=== PATIENT | male | born 1970 | race Caucasian/White ===

== ENCOUNTER 2017-02-21 18:14 | Inpatient (IN) | payer BC, OTHER ==
[~2017-02-21] VITALS: Ht 180.3 cm; Wt 100.0 kg
[2017-02-21 18:48] LABS: BASOPHILS % 0.5 % (0.0-2.0); EOSINOPHILS % 0.7 % (0.0-7.0); HEMATOCRIT 39.8 % (42.0-52.0); HEMOGLOBIN 14.3 g/dl (14.0-18.0); LYMPHOCYTES # 1.9 10^3/ul (0.8-2.9); LYMPHOCYTES % 31.9 % (15.0-51.0); MEAN CORPUSCULAR HGB CONC 35.9 g/dl (32.0-37.0); MEAN CORPUSCULAR VOLUME 86.3 fl (82.0-101.0); MEAN PLATELET VOLUME 8.7 fl (7.4-10.4); MONOCYTE # 0.5 10^3/ul (0.3-0.9); MONOCYTES % 7.9 % (0.0-11.0); NEUTROPHILS % 58.7 % (39.0-77.0); PLATELET COUNT 268 10^3/UL (140-415); RED BLOOD COUNT 4.61 10^6/ul (4.70-6.10); RED CELL DISTRIBUTION WIDTH 12.1 % (11.5-14.5)
[2017-02-21 19:03] LABS: INR 0.97; PROTIME 12.9 Sec (12.2-14.2)
[2017-02-21 19:04] LABS: ALANINE AMINOTRANSFERASE 66 IU/L (13-69); ALBUMIN 4.2 g/dl (3.3-4.9); ALBUMIN/GLOBULIN RATIO 1.55; ALKALINE PHOSPHATASE 75 IU/L (42-121); ANION GAP 19 (8-16); ASPARTATE AMINO TRANSFERASE 29 IU/L (15-46); BILIRUBIN,INDIRECT 0.4 mg/dl (0-1.1); BILIRUBIN,TOTAL 0.4 mg/dl (0.2-1.3); BLOOD UREA NITROGEN 15 mg/dl (7-20); CARBON DIOXIDE 24 mmol/L (21-31); CHLORIDE 103 mmol/L (97-110); CREATININE 0.94 mg/dl (0.61-1.24); GLUCOSE 100 mg/dl (70-220); PARTIAL THROMBOPLASTIN TIME 25.9 Sec (25.0-35.0); POTASSIUM 4.1 mmol/L (3.5-5.1); SODIUM 142 mmol/L (135-144); TOTAL PROTEIN 6.9 g/dl (6.1-8.1)
[2017-02-21 19:06] LABS: D-DIMER 294.8 ng/ml (<460)
[2017-02-21 19:16] LABS: B-TYPE NATRIURETIC PEPTIDE 37 PG/ML (0-125)
--- NOTE | 2017-02-21 19:26 | RADRPT ---
PROCEDURE: X-ray Chest. CLINICAL INDICATION: Chest pain. TECHNIQUE: Single view chest x-ray. COMPARISON: None available. FINDINGS: The examination is under inflated. The cardiomediastinal silhouette is within normal limi ts. The lungs are clear without focal consolidation, effusion, or pneumothorax. There are no acute osseous abnormalities. IMPRESSION: 1. No acute cardiopulmonary abnormality. RPTAT: HLBP .Arden Richardson MD, MD Date Time Electronically viewed and signed by .Arden Richardson MD, on 02/21/2017 19:26 .P/
[2017-02-21 19:32] LABS: TROPONIN-I < 0.012 ng/ml (0.00-0.12)
--- NOTE | 2017-02-21 19:59 | ERA ---
ER Documentation Chief Complaint Date/Time DATE: 02/21/17 TIME: 19:58 Chief Complaint chest x1 week, radiating to right arm, getting worse HPI This is a 46-year-old male with a history of hypertension, and gastroesophageal reflux disease who presents to the emergency room for evaluation of chest pain. The patient states that he has had chest pain on and off for the last week and he localizes the chest pain to the center of his chest with mild radiation to the left and right arm. He states that exertion does make his chest pain worse and resting flat makes his chest pain better. The patient states that he has mild shortness of breath associated with this chest pain. He states that he was seen at [facility] last night and was in the emergency room for the same complaint and was discharged after "some blood test" ROS All systems reviewed and are negative except as per history of present illness. PMhx/Soc History of Surgery: No Anesthesia Reaction: No Hx Neurological Disorder: No Hx Respiratory Disorders: No Hx Cardiac Disorders: No Hx Psychiatric Problems: No Hx Miscellaneous Medical Probl: No Hx Alcohol Use: Yes (occasionally) Hx Substance Use: No Hx Tobacco Use: Yes Smoking Status: Former smoker Physical Exam Vitals Vital Signs Date Time Temp Pulse Resp B/P Pulse Ox O2 Delivery O2 Flow Rate FiO2 02/21/17 18:30 98.1 75 18 141/99 98 Physical Exam INITIAL VITAL SIGNS: Reviewed by me GENERAL: The patient is well developed and appropriate for usual state of health in no apparent distress HEENT: Pupils equal, round, and reactive to light. EOMI. There is no scleral icterus. NECK: C-spine is soft and supple, there is no meningismus. There is no cervical lymphadenopathy. LUNGS: Clear to auscultation bilaterally. There are no rales, wheezes or rhonchi. HEART: Regular rate and rhythm, no murmurs, clicks, rubs or gallops. ABDOMEN: Soft, non-tender, non-distended. There are bowel sounds in all four quadrants. No rebound or guarding. EXTREMITIES: There is no peripheral cyanosis or edema. No focal swelling or erythema. NEUROLOGICAL: The patient moves all four extremities with 5/5 strength. Cranial nerves II - XII are intact. Normal gait. Alert and oriented SKIN: There is no apparent rash or petechiae. HEME/LYMPHATIC: There is no evidence of excessive bruising or lymphedema. PSYCHIATRIC: The patient does not appear anxious or depressed. Result Diagram: 02/21/17181402/21/171814 Results 24 hrs Laboratory Tests Test 02/21/17 18:15 White Blood Count 6.010^3/ul Red Blood Count 4.6110^6/ul Hemoglobin 14.3g/dl Hematocrit 39.8% Mean Corpuscular Volume 86.3fl Mean Corpuscular Hemoglobin 31.0pg Mean Corpuscular Hemoglobin Concent 35.9g/dl Red Cell Distribution Width 12.1% Platelet Count 63083^3/UL Mean Platelet Volume 8.7fl Neutrophils % 58.7% Lymphocytes % 31.9% Monocytes % 7.9% Eosinophils % 0.7% Basophils % 0.5% Nucleated Red Blood Cells % 0.0/100WBC Neutrophils # (Manual) 3.510^3/ul Lymphocytes # 1.910^3/ul Monocytes # 0.510^3/ul Eosinophils # 0.010^3/ul Basophils # 0.010^3/ul Nucleated Red Blood Cells # 0.010^3/ul Prothrombin Time 12.9Sec Prothrombin Time Ratio 1.0 INR International Normalized Ratio 0.97 Activated Partial Thromboplast Time 25.9Sec D-Dimer 294.80ng/ml D-Dimer Comment Sodium Level 142mmol/L Potassium Level 4.1mmol/L Chloride Level 103mmol/L Carbon Dioxide Level 24mmol/L Anion Gap 19 Blood Urea Nitrogen 15mg/dl Creatinine 0.94mg/dl Glucose Level 100mg/dl Calcium Level 9.0mg/dl Total Bilirubin 0.4mg/dl Direct Bilirubin 0.00mg/dl Indirect Bilirubin 0.4mg/dl Aspartate Amino Transf (AST/SGOT) 29IU/L Alanine Aminotransferase (ALT/SGPT) 66IU/L Alkaline Phosphatase 75IU/L Troponin I < 0.012ng/ml B-Type Natriuretic Peptide 37PG/ML Total Protein 6.9g/dl Albumin 4.2g/dl Globulin 2.70g/dl Albumin/Globulin Ratio 1.55 Current Medications Medications (Trade) Dose Ordered Sig/Pa Route PRN Reason Start Time Stop Time Status Last Admin Dose Admin Ondansetron HCl (Zofran Inj) 4 mg ER BRIDGE PRN IV NAUSEA AND/OR VOMITING 02/21/17 20:00 02/22/17 19:59 Acetaminophen (Tylenol Tab) 650 mg ER BRIDGE PRN PO MILD PAIN/FEVER 02/21/17 20:00 02/22/17 19:59 Procedures/MDM EKG: Rate/Rhythm: [Normal Sinus Rhythm] QRS, ST, T-waves: [No changes consistent w/ acute ischemia] Impression: [No evidence of ischemia or arrhythmia] EKG: #2 Rate/Rhythm: [Sinus bradycardia QRS, ST, T-waves: [No changes consistent w/ acute ischemia] Impression: [No evidence of ischemia or arrhythmia] Chest X-ray 1V Interpreted by me: Soft Tissue: No acute abnormalities Bones: No acute abnormalities Mediastinum/Cardiac Silhouette/Lungs: [No acute abnormalities] This 46-year-old male presents to the emergency room for evaluation of chest pain. This patient was seen and worked up at [facility] last night for the same. He was discharged home, and today states that his chest pain has gradually gotten worse. The patient does have an exertional component to his chest pain and this patient had a cardiac workup in the emergency room. His first troponin is negative. Serial EKGs did not show any ST elevations. Chest x-ray is clear with no widened mediastinum. This patient has a d-dimer which is negative, my suspicion for pulmonary embolism is low at this time. This patient will be admitted at this time. I have spoken to our admitting physician , who agrees to evaluate this patient. I have ordered an echocardiogram and the patient will be seen by stage technician in the hospital at this time. Departure Diagnosis: Primary Impression: Chest pain Condition: Stable KIMBERLEE BARRIENTOS DO Feb 21, 2017 19:59
[2017-02-21] MEDS ORDERED: ONDANSETRON 4 MG INJ IV PRN ×2 (20:00)
[2017-02-21] MEDS ORDERED: morphine 2 MG INJ IV PRN (20:00)
[2017-02-21] MEDS ORDERED: DOCUSATE SODIUM 100 MG CAP PO PRN (20:00)
[2017-02-21] MEDS ORDERED: NACL 0.9% 3 ML SYG IV SCH (20:00)
[2017-02-21] MEDS ORDERED: HYDROCODONE/APAP (5/325) TAB PO PRN (20:00)
[2017-02-21] MEDS ORDERED: ENOXAPARIN 40 MG/0.4 ML SYG SC SCH (20:00)
[2017-02-21] MEDS ORDERED: ACETAMINOPHEN 325 MG TAB PO PRN ×2 (20:00)
[2017-02-21] MEDS ORDERED: DEXL60CA2 PO (20:07)
[2017-02-21] MEDS ORDERED: PROP20TA4 PO (20:07)
[2017-02-21] MEDS ORDERED: IOHEXOL 350MG/ML 50 ML BTL ONE (20:45)
[2017-02-21] MEDS ORDERED: SOD CHLORIDE 0.9% 100 ML ONE (20:45)
[2017-02-21] MEDS ORDERED: IOHEXOL 100 ML ONE (20:45)
[2017-02-21] MEDS ORDERED: hydrALAzine 20 MG INJ IV PRN (21:00)
--- NOTE | 2017-02-21 21:18 | RADRPT ---
PROCEDURE: CTA chest pulmonary angiography. CLINICAL INDICATION: Chest pain. TECHNIQUE: CT angiography of the chest was performed after the uneventful intravenous administratio n of 120 cc of Omnipaque-350. Coronal and sagittal reformations were performed. 3-D/multiplanar re formations were performed by the technologist and an independent workstation. The total exam CTDI = 28.17, 17.69 mGy and the DLP equals 689.84 mGy-cm. One or more of the following dose reduction techniques were used: - Automated exposure control. - Adjustment of the mA and/or kV according to patient size. - Use of iterative reconstruction technique. COMPARISON: Chest x-ray dated 02/21/2017. FINDINGS: Pulmonary angiogram: There are no emboli through the level of the subsegmental pulmonary arteries. The main pulmonary artery is normal in caliber and there is no evidence of right heart strain. Lungs, pleura, airways, and thoracic inlet: The lungs are clear without focal consolidation, effusi on, or pneumothorax. There are no concerning pulmonary nodules or masses. There is debris within the right lateral aspect of the distal trachea. Cardiovascular system, mediastinum, and lymphatics: The heart is normal in size without pericardial thickening or effusion. The aorta is nonaneurysmal. There is no axillary, hilar, or mediastinal sandi nopathy. There is faint increased density in the anterior mediastinum, possibly related to residual thymic tissue. Visualized upper abdomen: The visualized upper abdomen is unremarkable. Musculoskeletal system and soft tissues: There is mild multilevel degenerative enthesopathy. There are no concerning osseous lesions. The soft tissues are unremarkable. IMPRESSION: 1. No pulmonary emboli through the level of the subsegmental pulmonary arteries. 2. No acute cardiopulmonary abnormality or findings to suggest a source of the patient's symptoms. 3. Minor debris within the right lateral aspect of the distal trachea. RPTAT: HLBP .Arden Richardson MD, Date Time Electronically viewed and signed by .Arden Richardson MD, MD on 02/21/2017 21:18 .P/
[2017-02-21 21:46] VITALS: PULSE 58
[2017-02-21 22:00] VITALS: Ht 180.3 cm; Wt 100.0 kg
[2017-02-21] MEDS ORDERED: ENOXAPARIN 100 MG/ML SYG SC SCH (22:00)
[2017-02-21 22:12] VITALS: BP 135/89; RESP 18
[2017-02-21] MEDS: ASPIRIN (EC) 81 MG TAB PO SCH (22:16)
[2017-02-21] MEDS: FAMOTIDINE 20 MG TAB PO SCH (22:18)
[2017-02-22] VITALS (10 sets, daily range): BP systolic 115–150; BP diastolic 75–87; PULSE 31–64; RESP 16–18
[2017-02-22 01:31] LABS: TROPONIN-I 0.078 ng/ml (0.00-0.12)
[2017-02-22 01:32] LABS: CK-MB 0.55 ng/ml (0.0-2.4)
--- NOTE | 2017-02-22 03:06 | HP ---
DATE OF ADMISSION: 02/21/2017 DATE OF : 1970 PRIMARY CARE PHYSICIAN: Unknown. [employer]: Mateo Monroe MD CHIEF COMPLAINT: Chest pain. HISTORY OF PRESENT ILLNESS: This is a 46-year-old gentleman who presents with chest pain for 1 week. Apparently, he has been in her usual state of health. Moved/traveled up to [place] where the elevation is a little high. He had been moving some boxes, but denies any mandy injury. The pain is described as sharp, maybe heavy, substernal, back, potentially to right upper shoulder area, lasts about 20 minutes, but intermittently returns and is uncomfortable. No previous similar discomfort in the past. Denies any mandy chest wall injury. When he takes a deep breath, he is unable to feel as if he is getting enough air. No rash along the chest wall. No syncope. Possible nausea. No vomiting. No diaphoresis. No calf pain. Occasional edema. Pain occasionally helped by lying down. The pain returns with walking with mild exertion and potentially relieved with some rest. He took some Motrin, which potentially helped a little bit, but the pain has returned. Presented to [facility] ER last night. Two troponins were negative, BNP unremarkable. Chest x-ray without any acute process. The discomfort returned and he returned to this ER today. CARDIAC RISK FACTORS: Possible hypertension and dyslipidemia. The patient recently quit smoking. No family history. No history of stress test or abnormal EKG. He was told by an ICU friend to have a CAT scan done as well. PAST MEDICAL HISTORY: Tobacco, sinus osteoma, vertigo, possible GERD (but this feels different in terms of its location), left ankle fracture (hardware), possible hypertension (recently started a beta mary for situational anxiety). PAST SURGICAL HISTORY: Sinus osteoma, left ankle hardware, left wrist cyst. ALLERGIES: NO KNOWN ALLERGIES. HOME MEDICATIONS: 1. Metoprolol. 2. Possibly Dexilant 60 mg. 3. Propranolol 40 mg b.i.d. SOCIAL HISTORY: Tobacco, social alcohol. FAMILY HISTORY: Father with liver transplant, pancreatitis. Mother with breast cancer. Siblings without any early coronary artery disease, cancer or stroke. REVIEW OF SYSTEMS: CONSTITUTIONAL: No fevers, no chills. No weight loss of which I am aware. NEUROLOGIC: Occasional vertigo. Feeling tired. No headache, no loss of speech or vision. CARDIOVASCULAR: Positive chest pain. Possible dyspnea. No edema. RESPIRATORY: Positive chest pain. Possible dyspnea. No fever. Positive recent travel, car trip up to [place]. GASTROINTESTINAL: Nausea. No vomiting, no diarrhea, no abdominal pain. GENITOURINARY: No hematuria, abdominal pain or fever. MUSCULOSKELETAL: No gait dysfunction. No rash noted along the chest wall. No edema. Denies any mandy chest wall injury. States he is fairly active. ENDOCRINE: No previous diabetes or thyroid dysfunction. Positive dyslipidemia. HEMATOLOGIC: He has had no hemoptysis, melena or hematuria of which I am aware. PSYCHIATRIC: The patient has stable mood. Not exhibiting any agitation, anxiety or depression. PHYSICAL EXAMINATION: HEENT: Extraocular movements are intact. No pallor, no icterus. No facial droop. NECK: No adenopathy, no carotid bruits, no JVD. CARDIOVASCULAR: S1 and S2 are regular. No murmur, rub or gallop appreciated. No tachypnea. Non-reproducible chest wall tenderness. Possibly mild lower sternum. LUNGS: Clear to auscultation bilaterally. ABDOMEN: Bowel sounds present. Nontender and nondistended. No rigidity. No rebound or guarding. EXTREMITIES: Without any edema. Negative Homans sign. DATA: Labs: White cell count of 6, hemoglobin 14, hematocrit 39, and platelets of 260. INR of 0.9. D-dimer 290, nonspecific. Sodium 142, potassium 4, chloride 103, bicarbonate 24, BUN of 15, creatinine 0.9, glucose of 100. LFTs normal. Troponin 0.012 (normal). Protein is 6, albumin of 4. Chest X-Ray: No acute process, no widened mediastinum, etc. ASSESSMENT AND PLAN: 1. Atypical chest pain. Rule out acute coronary syndrome. Probably musculoskeletal. No hypoxia, no tachypnea, and no tachycardia. No evidence of S1Q3T3 on EKG; doubt pulmonary embolus. No evidence of widened mediastinum on chest x-ray. Differential includes musculoskeletal versus gastroesophageal reflux disease. Cardiac risk factors include possible dyslipidemia, tobacco, and possible blood pressure. We will check with Cardiology whether we need to proceed forward. No family history of coronary artery disease. 2. Past tobacco. 3. Possible hypertension. 4. Vertigo. To be re-evaluated. Dictated By: Dru Morgan MD /fnt/ma /Document#: [id number] ; Mateo Monroe MD
[2017-02-22 07:35] LABS: BASOPHILS % 0.5 % (0.0-2.0); EOSINOPHILS % 0.7 % (0.0-7.0); HEMATOCRIT 42.6 % (42.0-52.0); HEMOGLOBIN 15.1 g/dl (14.0-18.0); LYMPHOCYTES # 2.3 10^3/ul (0.8-2.9); LYMPHOCYTES % 39.8 % (15.0-51.0); MEAN CORPUSCULAR HEMOGLOBIN 30.8 pg (29.0-33.0); MEAN CORPUSCULAR HGB CONC 35.4 g/dl (32.0-37.0); MEAN CORPUSCULAR VOLUME 86.9 fl (82.0-101.0); MONOCYTE # 0.4 10^3/ul (0.3-0.9); MONOCYTES % 7.7 % (0.0-11.0); NEUTROPHILS % 51.1 % (39.0-77.0); PLATELET COUNT 280 10^3/UL (140-415); RED CELL DISTRIBUTION WIDTH 12.2 % (11.5-14.5); WHITE BLOOD COUNT 5.7 10^3/ul (4.8-10.8)
[2017-02-22 07:54] LABS: TROPONIN-I 0.069 ng/ml (0.00-0.12)
[2017-02-22 07:57] LABS: CK-MB 0.52 ng/ml (0.0-2.4)
[2017-02-22 07:58] LABS: ALBUMIN 3.7 g/dl (3.3-4.9); ALBUMIN/GLOBULIN RATIO 1.54; BILIRUBIN,INDIRECT 0.1 mg/dl (0-1.1); BILIRUBIN,TOTAL 0.1 mg/dl (0.2-1.3); CHOL/HDL RATIO 5.6 RATIO; PHOSPHORUS 4.2 mg/dl (2.5-4.9); POTASSIUM 4.2 mmol/L (3.5-5.1); TOTAL PROTEIN 6.1 g/dl (6.1-8.1)
[2017-02-22 08:46] LABS: THYROID STIMULATING HORMONE 2.46 MIU/L (0.465-4.680)
[2017-02-22] MEDS: FAMOTIDINE 20 MG TAB PO SCH (08:59)
[2017-02-22] MEDS: ASPIRIN (EC) 81 MG TAB PO SCH (08:59)
[2017-02-22] MEDS ORDERED: REGADENOSON 0.4 MG/5 ML SYG ONE (11:17)
--- NOTE | 2017-02-22 11:34 | CONS ---
DATE OF ADMISSION: 02/21/2017 DATE OF CONSULTATION: 02/22/2017 REASON FOR CONSULTATION: Chest pain. Assess for acute coronary syndrome. REQUESTING PHYSICIAN: Dr. Morgan from the hospitalist service. HISTORY OF PRESENT ILLNESS: Mr. May is a 46-year-old male with a history of hypertension and possible dyslipidemia for which he has not been taking medications, who states that for the last week he has been noticing a substernal chest pain, worse with exertional activities, described as a tightness to burning sensation with radiation down his right arm. The patient had presented to an outside hospital at [facility] on the day prior to admission and underwent a laboratory analysis, per report including troponins, which were negative. BNP was unremarkable. The patient states that he had recently been up in [place] and was moving boxes at work and that is when he noticed the problems with chest pain. Upon arrival in the emergency department here at [facility], temperature 98.1, blood pressure 141/99, pulse 75, respiratory rate 18, satting 98 percent. Patient's labs: A white count of 6, a hemoglobin of 14.3, a platelet count of 268. Sodium 142, potassium 4.1, creatinine 0.9, BUN 15. Troponin negative. INR 0.97. The patient underwent a CT, CTA revealing no pulmonary emboli, no acute cardiopulmonary abnormality, mild in the right lateral aspect of the distal trachea. The patient's electrocardiogram revealed normal sinus rhythm at a rate of 76, normal axis, normal intervals, with mild biphasic T-wave abnormalities in the anterior precordial leads V2 and V3. Patient admitted to the floor and overnight was monitored on telemetry revealing episodes of sinus cal down to the 40s and 48 this morning with stable blood pressures. The patient denies ongoing dizziness or weakness at this time. The patient denies ongoing chest pain at this time. In addition, the patient has had 3 negative troponins since admit. PAST MEDICAL HISTORY: As above in HPI. MEDICATION: Currently in the hospital: 1. Lovenox 90 mg subcu b.i.d. 2. Aspirin 81 mg daily. 3. Pepcid 20 mg q.12. ALLERGIES: NO KNOWN DRUG ALLERGIES. SOCIAL HISTORY: Positive for tobacco, quit x6 months. Social EtOH. No illicit drug use. FAMILY HISTORY: No history of sudden cardiac or early CAD. REVIEW OF SYSTEMS: As above in HPI. CONSTITUTIONAL: No fevers, chills. RESPIRATORY: No current shortness of breath. CARDIOVASCULAR: Intermittent chest pain. GASTROINTESTINAL: No vomiting. GENITOURINARY: No hematuria. MUSCULOSKELETAL: Degenerative joint disease. PSYCHIATRIC: The patient has depression. NEUROLOGIC: No documented history of CVA. ENDOCRINE: No documented history of diabetes mellitus. PHYSICAL EXAMINATION: VITAL SIGNS: Temperature 97.9, blood pressure 115/79, pulse 46, respiratory rate 16, satting 98 percent. GENERAL: The patient is alert, awake, no acute distress. NECK: JVP approximately 8 cm water. LUNGS: Fair air movement throughout. HEART: Bradycardic, regular rhythm. Normal S1, S2. 1/6 systolic murmur. Nondisplaced PMI. ABDOMEN: Positive bowel sounds. Soft. EXTREMITIES: No pitting edema. 1+ pulses, bilateral posterior tibial. LABORATORY: Most recently from today: Sodium 144, potassium 4.2, creatinine 1.0, BUN 15. LDL 53, HDL 24. White blood cell count 5.7, hemoglobin 15.1, platelet count 280. IMAGING STUDIES: As above in HPI. No further imaging studies are reviewed at this time. ELECTROCARDIOGRAM: From today reveals marked sinus bradycardia, rate 45, normal axis, normal intervals, and biphasic T-wave abnormalities in leads V2, V3. IMPRESSION: 1. Chest pain. Assess for acute coronary syndrome, with negative troponins x3 at this time. 2. Abnormal electrocardiogram with biphasic anterior T-wave abnormalities. Assess for acute coronary syndrome. 3. Bradycardia to the 40s at this time, with stable blood pressures and no significant signs of conduction system disease, but mild incomplete right bundle branch block, 4. Dyslipidemia with low HDL. 5. Former tobacco. RECOMMENDATIONS: 1. At this time, would maintain patient on telemetry monitoring to follow rhythm and rates closely. 2. Continue patient's aspirin for prophylaxis against cardiac events. 3. We will change the patient's Lovenox to prophylactic dose at this time. The patient has ruled out for myocardial infarction. Negative CT, CTA. 4. Patient is status post TSH within normal limits. Continue to follow heart rate closely and refrain from using any alexandra agents, such as beta mary and calcium channel blockers. 5. We will give patient sublingual nitroglycerin for recurrent episodes of chest pain at this time. 6. We will follow patient's 2D echo for assessment in ejection fraction, wall motion, rule out any major valve abnormalities. 7. We will consider initiation of Niaspan for low HDL and patient is to undergo a cardiac stress test today in order to assess the possibility of significant obstructive coronary disease leading to his symptoms of chest pain and subsequent EKG abnormalities and admitted to the hospital. Thank you for allowing me to take part in the care of this patient. I will continue to follow him with you. Further recommendations will be made as patient progresses through his inpatient hospital course. Dictated By: Mateo Monroe MD /luís/ean /Document#: [id number] ; Dr. Morgan
[2017-02-22] MEDS: NITROGLYCERIN (SL) 0.4 MG TAB SL PRN ×3 (12:54→15:46)
--- NOTE | 2017-02-22 15:00 | RADRPT ---
PROCEDURE: Lexiscan myocardial perfusion study CLINICAL INDICATION: 46 -year-old patient complaining of chest pain. TECHNIQUE: Lexiscan 0.4 mg intravenously separate acquisition gated myocardial perfusion SPECT usi ng Tc 99m Myoview 30.1 mCi intravenously at stress and Tc-99m Myoview, 10.4 mCi intravenously at res t was performed using the rest/stress sequence. Poststress Myoview SPECT images were obtained in th e supine position. COMPARISON: No prior studies. FINDINGS: Perfusion images reveal a large size moderate to severe in degree reversible perfusion defect in the apex, distal to mid septal, distal inferior and distal to mid anterior heller. Lexiscan post stress gated SPECT images demonstrate mild hypokinesis of the left ventricle. IMPRESSION: 1. The type and distribution of the scintigraphic abnormalities are most consistent with a large si ze reversible perfusion defect involving the apical, distal to mid septal, distal inferior and dista l anterior heller, likely due to stress induced ischemia in the LAD distribution. 2. Mild hypokinesis of the left ventricle. 3. The left ventricle ejection fraction at stress is 41%. A call report was made to Dr. Monroe at 02:53 p.m. on February 22, 2017. RPTAT: HH .Brittney Leung MD, Date Time Electronically viewed and signed by .Brittney Leung MD, on 02/22/2017 14:59 .L/
[2017-02-22] MEDS ORDERED: ISOSORBIDE MONONITRATE(SR)30 MG TAB PO SCH (16:00)
--- NOTE | 2017-02-22 17:02 | RADRPT ---
Vent Rate: 45 bpm RR Interval: 0 msec ME Interval: 158 msec QRS Duration: 108 msec QT Interval: 482 msec QTC Interval: 416 msec P-R-T [place]: 41 - 50 - 53 degrees Marked sinus bradycardia Minimal voltage criteria for LVH, may be normal variant T wave abnormality, consider anterior ischemia Abnormal ECG Electronically Signed By: Mahesh Danielson [id number]
--- NOTE | 2017-02-22 17:25 | PN ---
Date/Time of Note Date/Time of Note DATE: 02/22/17 TIME: 17:21 Assessment/Plan VTE Prophylaxis VTE Prophylaxis Intervention: LMWH Lines/Catheters IV Catheter Type (from Nrsg): Peripheral IV Assessment/Plan Chief Complaint/Hosp Course S: Discomfort w min activity. Substernal pain radiating to the back. No diaphoresis nausea vomiting edema or syncope. O: Vital signs stable; sinus rhythm PE No pallor JVD Regular Clear Bs + nt nd no r/r/g No edema Assessment and plan 1. Chest pain abn stress t. Recommended cardiac cath. Patient reviewing his options. 2. Hypertension/dyslipidemia 3. Past tobacco Problems: Exam/Review of Systems Vital Signs Vitals Vital Signs Date Time Temp Pulse Resp B/P Pulse Ox O2 Delivery O2 Flow Rate FiO2 02/22/17 16:00 97.8 61 16 133/77 95 02/21/17 21:11 Room Air Intake and Output 02/21/17 02/21/17 02/22/17 15:00 23:00 07:00 Intake Total 120 ml Balance 120 ml Results Result Diagram: 02/22/17 0649 02/22/17 0649 Results 24 hrs Laboratory Tests Test 02/21/17 18:00 02/21/17 18:15 02/22/17 00:30 02/22/17 06:49 Lipase 45 White Blood Count 6.0 5.7 Red Blood Count 4.61 L 4.90 Hemoglobin 14.3 15.1 Hematocrit 39.8 L 42.6 Mean Corpuscular Volume 86.3 86.9 Mean Corpuscular Hemoglobin 31.0 30.8 Mean Corpuscular Hemoglobin Concent 35.9 35.4 Red Cell Distribution Width 12.1 12.2 Platelet Count 268 280 Mean Platelet Volume 8.7 9.0 Neutrophils % 58.7 51.1 Lymphocytes % 31.9 39.8 Monocytes % 7.9 7.7 Eosinophils % 0.7 0.7 Basophils % 0.5 0.5 Nucleated Red Blood Cells % 0.0 0.0 Neutrophils # (Manual) 3.5 2.9 Lymphocytes # 1.9 2.3 Monocytes # 0.5 0.4 Eosinophils # 0.0 0.0 Basophils # 0.0 0.0 Nucleated Red Blood Cells # 0.0 0.0 Prothrombin Time 12.9 Prothrombin Time Ratio 1.0 INR International Normalized Ratio 0.97 Activated Partial Thromboplast Time 25.9 D-Dimer 294.80 D-Dimer Comment Sodium Level 142 144 Potassium Level 4.1 4.2 Chloride Level 103 104 Carbon Dioxide Level 24 27 Anion Gap 19 H 17 H Blood Urea Nitrogen 15 15 Creatinine 0.94 1.00 Glucose Level 100 93 Calcium Level 9.0 9.0 Total Bilirubin 0.4 0.1 L Direct Bilirubin 0.00 0.00 Indirect Bilirubin 0.4 0.1 Aspartate Amino Transf (AST/SGOT) 29 23 Alanine Aminotransferase (ALT/SGPT) 66 61 Alkaline Phosphatase 75 78 Troponin I < 0.012 0.078 0.069 B-Type Natriuretic Peptide 37 Total Protein 6.9 6.1 Albumin 4.2 3.7 Globulin 2.70 2.40 Albumin/Globulin Ratio 1.55 1.54 Creatine Kinase 46 40 Creatine Kinase Index 1.2 1.3 Creatinine Kinase MB (Mass) 0.55 0.52 Hemoglobin A1c 5.2 Phosphorus Level 4.2 Magnesium Level 2.0 Triglycerides Level 297 H Cholesterol Level 136 LDL Cholesterol, Calculated 53 HDL Cholesterol 24 L Cholesterol/HDL Ratio 5.6 Thyroid Stimulating Hormone (TSH) 2.460 Medications Medications Current Medications Ondansetron HCl (Zofran Inj) 4 mg Q6H PRN IV NAUSEA AND/OR VOMITING; Start at 20:00 Acetaminophen (Tylenol Tab) 650 mg Q6H PRN PO PAIN LEVEL 1-3 OR FEVER; Start at 20:00 Acetaminophen/ Hydrocodone Bitart ([place] (5/325)) 1 tab Q6H PRN PO MODERATE PAIN LEVEL 4-6; Start 02/21/17 at 20:00 Morphine Sulfate (morphine) 2 mg Q4H PRN IV SEVERE PAIN LEVEL 7-10; Start 02/21 at 20:00 Docusate Sodium (Colace) 100 mg Q12H PRN PO CONSTIPATION; Start 02/21/17 at 20: 00 Hydralazine HCl (Apresoline) 5 mg Q4 PRN IV ELEVATED SYSTOLIC BP; Start at 21:00 Aspirin (Halfprin) 81 mg DAILY PO Last administered on 02/22/17t 08:59; Admin Dose 81 MG; Start 02/21/17 at 22:00 Enoxaparin Sodium (Lovenox) 40 mg DAILY SC ; Start 02/23/17 at 09:00 Niacin (Niaspan) 500 mg HS PO ; Start 02/22/17 at 21:00 Nitroglycerin (Nitroglycerin (Sl Tab) 0.4 Mg) 1 tab Q5M PRN SL ANGINA Last administered on 02/22/17 15:46; Admin Dose 1 TAB; Start 02/22/17 at 10:30 Famotidine (Pepcid) 20 mg DAILY PO ; Start 02/23/17 at 09:00 Isosorbide Mononitrate (Imdur) 30 mg DAILY PO Last administered on 02/22/17 17 :11; Admin Dose 30 MG; Start 02/22/17 at 16:00 HENRIQUE MONTEIRO MD Feb 22, 2017 17:25
--- NOTE | 2017-02-22 17:27 | PDOCDIS ---
Discharge Instructions DIAGNOSIS Discharge Diagnosis chest pain CONDITION Patient Condition: Stable HOME CARE INSTRUCTIONS: Diet Instructions: Low Fat /Cholesterol ACTIVITY: Activity Restrictions: Slowly Increase Activity FOLLOW UP/APPOINTMENTS Follow-up Plan Ask ER at [facility] to consult Dr Bob Vaughn. HENRIQUE MONTEIRO MD Feb 22, 2017 17:27
[2017-02-22] MEDS ORDERED: ATOR40TA68 PO (17:29)
[2017-02-22] MEDS ORDERED: ASPI-664 PO (17:29)
[2017-02-22] MEDS ORDERED: ISOS30TA5 PO (17:29)
[2017-02-22] MEDS ORDERED: NCN500CCR PO (18:08)
--- NOTE | 2017-02-22 19:18 | DS ---
Date/Time of Note Date/Time of Note DATE: 02/22/17 TIME: 19:04 Discharge Summary Admission/Discharge Info Admit Date/Time Feb 21, 2017 at 19:48 Discharge Date/Time Discharge Diagnosis chest pain Patient Condition: Stable Procedures CXR IMPRESSION: 1. No acute cardiopulmonary abnormality. RPTAT: HLBP .Arden Richardson MD, CTA FINDINGS: Pulmonary angiogram: There are no emboli through the level of the subsegmental pulmonary arteries. The main pulmonary artery is normal in caliber and there is no evidence of right heart strain. Lungs, pleura, airways, and thoracic inlet: The lungs are clear without focal consolidation, effusion, or pneumothorax. There are no concerning pulmonary nodules or masses. There is debris within the right lateral aspect of the distal trachea. Cardiovascular system, mediastinum, and lymphatics: The heart is normal in size without pericardial thickening or effusion. The aorta is nonaneurysmal. There is no axillary, hilar, or mediastinal adenopathy. There is faint increased density in the anterior mediastinum, possibly related to residual thymic tissue. Visualized upper abdomen: The visualized upper abdomen is unremarkable. Musculoskeletal system and soft tissues: There is mild multilevel degenerative enthesopathy. There are no concerning osseous lesions. The soft tissues are unremarkable. IMPRESSION: 1. No pulmonary emboli through the level of the subsegmental pulmonary arteries. 2. No acute cardiopulmonary abnormality or findings to suggest a source of the patient's symptoms. 3. Minor debris within the right lateral aspect of the distal trachea. RPTAT: HLBP .Arden Richardson MD, MD RITTER IMPRESSION: 1. The type and distribution of the scintigraphic abnormalities are most consistent with a large size reversible perfusion defect involving the apical, distal to mid septal, distal inferior and distal anterior helelr, likely due to stress induced ischemia in the LAD distribution. 2. Mild hypokinesis of the left ventricle. 3. The left ventricle ejection fraction at stress is 41%. A call report was made to Dr. Monroe at 02:53 p.m. on February 22, 2017. RPTAT: HH .Brittney Leung MD, MD Hx of Present Illness This is a 46-year-old gentleman who presents with chest pain for 1 week. Apparently, he has been in her usual state of health. Moved/traveled up to [place] where the elevation is a little high. He had been moving some boxes, but denies any mandy injury. The pain is described as sharp, maybe heavy, substernal, back, potentially to right upper shoulder area, lasts about 20 minutes, but intermittently returns and is uncomfortable. No previous similar discomfort in the past. Denies any mandy chest wall injury. When he takes a deep breath, he is unable to feel as if he is getting enough air. No rash along the chest wall. No syncope. Possible nausea. No vomiting. No diaphoresis. No calf pain. Occasional edema. Pain occasionally helped by lying down. The pain returns with walking with mild exertion and potentially relieved with some rest. He took some Motrin, which potentially helped a little bit, but the pain has returned. Presented to [facility] ER last night. Two troponins were negative, BNP unremarkable. Chest x-ray without any acute process. The discomfort returned and he returned to this ER today. Hospital Course Evaluated and managed for chest pain. ruled out for acute MO via enzymes EKG symptoms. Due to recent travel history, CTA done. No evidence of PE. No acute intra thoracic process such as aneurysm/ rupture. Lipase LFTs ok. Patient was seen by cardiology and underwent stress test. These results are concerning for LAD distribution ischemia. Patient was given the option of a angiogram, however he is electing to get a second opinion at [facility]. He is has refused to stay here. His vital signs are stable/ stable for discharge. Ideally aspirin/Niaspan/Imdur, and to consider an MADELYN i. However he is going directly to the ER at this time. His consultation pathology teacher has already agreed to accept his care once he arrives there in the emergency room. A/P 1. Chest pain abn stress t. Recommended cardiac cath. 2. Hypertension/dyslipidemia. bp around 140 on admission 3. Past tobacco 4. Upper airway debris? No sign symptoms aspiration. No hoarseness. Repeat imaging or bronc should symptoms present. 5. Bradycardia asymptomatic. Discontinue beta-mary. Lab's: Total cholesterol 136, triglyceride 297, LDL 53, HDL 24. A1c 5.2 lipase normal LFTs normal. 3 troponin is normal. No white count. Home Meds Active Scripts Niacin* (Niaspan*) 500 Mg Tablet.sa, 500 MG PO HS for 5 Days, #5 Prov:HENRIQUE MONTEIRO MD 02/22/17 Aspirin* (Aspirin* EC) 81 Mg Tablet., 81 MG PO DAILY for 5 Days, #5 Prov:HENRIQUE MONTEIRO MD 02/22/17 Isosorbide Mononitrate* (Isosorbide Mononitrate*) 30 Mg Tab.er.24h, 30 MG PO DAILY for 5 Days, #5 Prov:HENRIQUE MONTEIRO MD 02/22/17 Reported Medications Dexlansoprazole (Dexilant) 60 Mg Cap.mp, 60 MG PO DAILY, #30 CAP 02/21/17 Discontinued Reported Medications Propranolol Hcl* (Propranolol Hcl*) 20 Mg Tablet, 40 MG PO BID, TAB 02/21/17 Follow-up Plan go directly to [facility] ER. Stop- Metoprolol New-Medicines Niaspan 500 daily Imdur ER 30 Aspirin 81 daily Primary Care Provider Not On Staff Doctor Time spent on discharge: > 30 minutes Pending Labs Laboratory Tests Test 02/22/17 00:30 02/22/17 06:49 Creatine Kinase 46IU/L (23-200) 40IU/L (23-200) Creatine Kinase Index 1.2 1.3 Creatinine Kinase MB (Mass) 0.55ng/ml (0.0-2.4) 0.52ng/ml (0.0-2.4) Troponin I 0.078ng/ml (0.00-0.12) 0.069ng/ml (0.00-0.12) White Blood Count 5.710^3/ul (4.8-10.8) Red Blood Count 4.9010^6/ul (4.70-6.10) Hemoglobin 15.1g/dl (14.0-18.0) Hematocrit 42.6% (42.0-52.0) Mean Corpuscular Volume 86.9fl (82.0-101.0) Mean Corpuscular Hemoglobin 30.8pg (29.0-33.0) Mean Corpuscular Hemoglobin Concent 35.4g/dl (32.0-37.0) Red Cell Distribution Width 12.2% (11.5-14.5) Platelet Count 14655^3/UL (140-415) Mean Platelet Volume 9.0fl (7.4-10.4) Neutrophils % 51.1% (39.0-77.0) Lymphocytes % 39.8% (15.0-51.0) Monocytes % 7.7% (0.0-11.0) Eosinophils % 0.7% (0.0-7.0) Basophils % 0.5% (0.0-2.0) Nucleated Red Blood Cells % 0.0/100WBC (0.0-0.0) Neutrophils # (Manual) 2.910^3/ul (1.7-7.5) Lymphocytes # 2.310^3/ul (0.8-2.9) Monocytes # 0.410^3/ul (0.3-0.9) Eosinophils # 0.010^3/ul (0.0-0.5) Basophils # 0.010^3/ul (0.0-0.1) Nucleated Red Blood Cells # 0.010^3/ul (0.0-0.0) Sodium Level 144mmol/L (135-144) Potassium Level 4.2mmol/L (3.5-5.1) Chloride Level 104mmol/L (97-110) Carbon Dioxide Level 27mmol/L (21-31) Anion Gap 17 (8-16) Blood Urea Nitrogen 15mg/dl (7-20) Creatinine 1.00mg/dl (0.61-1.24) Glucose Level 93mg/dl (70-220) Hemoglobin A1c 5.2% (0-5.9) Calcium Level 9.0mg/dl (8.4-10.2) Phosphorus Level 4.2mg/dl (2.5-4.9) Magnesium Level 2.0mg/dl (1.7-2.5) Total Bilirubin 0.1mg/dl (0.2-1.3) Direct Bilirubin 0.00mg/dl (0.00-0.20) Indirect Bilirubin 0.1mg/dl (0-1.1) Aspartate Amino Transf (AST/SGOT) 23IU/L (15-46) Alanine Aminotransferase (ALT/SGPT) 61IU/L (13-69) Alkaline Phosphatase 78IU/L (42-121) Total Protein 6.1g/dl (6.1-8.1) Albumin 3.7g/dl (3.3-4.9) Globulin 2.40g/dl (1.3-3.2) Albumin/Globulin Ratio 1.54 Triglycerides Level 297mg/dl (0-149) Cholesterol Level 136mg/dl (100-200) LDL Cholesterol, Calculated 53mg/dl HDL Cholesterol 24mg/dl (27-67) Cholesterol/HDL Ratio 5.6RATIO Thyroid Stimulating Hormone (TSH) 2.460MIU/L (0.465-4.680) HENRIQUE MONTEIRO MD Feb 22, 2017 19:16
[2017-02-22] MEDS ORDERED: NIACIN (ER) 500 MG TAB PO SCH (21:00)
--- NOTE | 2017-02-22 23:18 | RADRPT ---
Echocardiogram Report Patient Name: RAUL MURCIA Gender: Male Date: 1970 Study Date: 22-Feb-2017 Utility Hand: Alexis Garcia HUY Location: [id number] Ref. Physician: KIMBERLEE BARRIENTOS Quality: Good Procedures: Transthoracic echocardiogram with complete 2D, M-Mode, and doppler examination. Indications: Chest Pain. 2D/M Mode Doppler Measurement Value Normal Ranges Measurement Value Normal Ranges LVIDd 2D 5.0 3.5 - 5.6 cm AV Peak John 0.9 m/sec LVIDs 2D 3.0 2.1 - 4.1 cm AV Peak PG 3.2 mmHg LVPWd 2D 1.2 0.6 - 1.1 cm LVOT Peak John 0.7 m/sec IVSd 2D 1.2 0.6 - 1.1 cm LVOT Peak PG 2.2 mmHg AoR Diam 2D 3.1 2.0 - 3.7 cm MV E Peak John 0.8 m/sec EDV 2D 116.2 cm3 MV A Peak John 0.6 m/sec ESV 2D 26.4 cm3 MV E/A 1.4 LA Dimen 2D 3.7 2.3 - 4.0 cm MV Decel Time 193 msec MV Decel Tripp 4 MV E/A 1.4 TR Peak John 2.2 m/sec TR Peak PG 18.9 mmHg RVSP 22.0 mmHg Findings Left Ventricle: Normal left ventricular cavity size. Mild concentric left ventricular hypertrophy. Mild left ventricular systolic dysfunction. Ejection fraction is visually estimated at 45 %. Tissue Doppler/Mitral Doppler indices are within normal limits. These segments of the LV are hypokinetic apical anterior segment and mid anterior segment. Right Ventricle: Normal right ventricular size. Normal right ventricular systolic function. Left Atrium: The left atrium is normal in size. Right Atrium: The right atrium is normal in size. Mitral Valve: Normal appearance and function of the mitral valve with trace physiologic regurgitation. Aortic Valve: Normal appearance of the aortic valve. No significant aortic stenosis or insufficiency. Tricuspid Valve: Normal appearance of the tricuspid valve. Estimated peak PA systolic pressure 22 mmHg. There is trace tricuspid regurgitation. Pulmonic Valve: There is mild pulmonic regurgitation. Pericardium: Normal pericardium with no significant pericardial effusion. Aorta: Normal aortic root. IVC: Normal size and normal respiratory collapse consistent with normal right atrial pressure. Conclusions 1.Normal left ventricular cavity size. Mild concentric left ventricular hypertrophy. Mild left ventricular systolic dysfunction. Ejection fraction is visually estimated at 45 %. Tissue Doppler/Mitral Doppler indices are within normal limits. These segments of the LV are hypokinetic apical anterior segment. and mid anterior segment. 2.Normal appearance and function of the mitral valve with trace physiologic regurgitation. 3.Normal appearance of the tricuspid valve. Estimated peak PA systolic pressure 22 mmHg. There is trace tricuspid regurgitation. Electronically Signed By: Mateo Monroe 22-Feb-2017 23:17:47 -0700 Patient Name: RAUL MURCIA Study Date: 22-Feb-2017 [id number]
--- NOTE | 2017-02-23 07:06 | CARRPT ---
DATE OF PROCEDURE: 02/22/2017 PROCEDURE: Lexiscan Cardiolite stress test, Lexiscan portion. INDICATION: Chest pain. Assess for ischemia. FINDINGS: Baseline vital signs electrocardiogram, pulse 51, blood pressure 130/85, electrocardiogram with sinus bradycardia, rate 51, normal axis, intervals with lateral T-wave inversions, biphasic 2 abnormalities in the anterior precordial leads. PROCEDURE: Patient with standard Lexiscan infusion over 10 seconds followed by radiotracer. Patient's test stopped due to completion of protocol. Maximal achieved blood pressure during the test was 144/88. Maximum heart rate during the test 89. ELECTROCARDIOGRAM FINDINGS: During Lexiscan infusion, the patient developed bigeminy, which resolved during recovery. SYMPTOMS: Patient complained of chest pain, which persisted into recovery and patient was given sublingual nitroglycerin in recovery with resolution of pain. IMPRESSION: 1. No Lexiscan induced ST-T change from from the baseline abnormalities diagnostic for ischemia. 2. Complaints of chest pain during stress testing, which resolved to a prolonged recovery after nitroglycerin. 3. Episodes of premature ventricular contractions in a bigeminal pattern. 4. Report of nuclear images to follow in separate dictation. Dictated By: Mateo Monroe MD /[email or web address] /Document#: [id number]
[2017-02-23] MEDS ORDERED: FAMOTIDINE 20 MG TAB PO SCH (09:00)
[2017-02-23] MEDS ORDERED: ENOXAPARIN 40 MG/0.4 ML SYG SC SCH (09:00)
== END 2017-02-22 19:20 | disposition home or self-care (01) | DRG 313 ==
LOC: E/R 18:14 → EEVIPCON 18:14 → TEL 19:48
PROVIDERS: ADMIT Internal Medicine; ATTEND Internal Medicine
DX: R07.9 Chest pain, unspecified (principal); I10 Essential (primary) hypertension; Z87.891 Personal history of nicotine dependence; R42 Dizziness and giddiness; R00.1 Bradycardia, unspecified
CPT/HCPCS: 36415; 71010; 71275; 78452; 80053; 80061; 82550; 82553; 83036; 83690; 83735; 83880; 84100; 84443; 84484; 85025; 85378; 85610; 85730; 93005; 93017; 93306; A9500; A9505; J1650; J2785; Q9967